=== PATIENT | male | born 1970 | race Caucasian/White ===

== ENCOUNTER → 2019-04-01 | Day surgery (SDC) | payer OTHER ==
[~2019-04-01] MED LIST: Lactated Ringers 1,000 ML IV SCH; Propofol 200 MG/20 ML SDV IV ONE
--- NOTE | 2019-04-01 14:33 | OR ---
DATE OF OPERATION: 04/01/2019 PREOPERATIVE DIAGNOSIS: SCREENING COLONOSCOPY. POSTOPERATIVE DIAGNOSIS: SCREENING COLONOSCOPY. SURGEON: Vikash Alicia MD PROCEDURE: FULL-LENGTH COLONOSCOPY WITH SNARE POLYPECTOMY X1. ANESTHESIA: MAC via MAILING MANAGER. COMPLICATIONS: None. SPECIMEN: Tubular adenoma, splenic flexure, less than 0.5 cm. FINDINGS: 1. Full-length colonoscopy. 2. Mild sigmoid diverticulosis. 3. Small tubular adenoma, splenic flexure. RECOMMENDATIONS: Followup colonoscopy in 5 years. INDICATIONS: The patient was in for a routine physical. Due to his age, we recommended a screen for colon cancer. DESCRIPTION OF PROCEDURE: The patient was prepped and draped, placed in the left lateral decubitus position. A lubricated Olympus colonoscope was inserted and easily advanced to the cecum. Direct visualization of the ileocecal valve and appendiceal orifice was accomplished. The bowel prep was adequate. Upon withdrawal of the scope, the cecum, ascending and transverse colon were benign. On the descending colon side of the splenic flexure, the patient had a flat tubular adenoma easily removed with a snare and suctioned into polyp trap #1. It was approximately 4 to 5 mm in size. The rest of the descending colon was benign. The patient did have mild scattered diverticulosis in the sigmoid colon without inflammatory changes. No other polyps, masses, ulceration, or bleeding sites were seen. No signs of colitis. The rectal vault was benign. Retroflexion of the scope in the rectum showed no perianal lesions. Air was suctioned, scope removed without complication. DALY/EVERETTE /[id number]
== END ==
LOC: CC.SDS 07:19
PROVIDERS: ATTEND Family Medicine
DX: Z12.11 Encounter for screening for malignant neoplasm of colon (principal); D12.3 Benign neoplasm of transverse colon; K57.30 Diverticulosis of large intestine without perforation or abscess without bleeding; I10 Essential (primary) hypertension; E11.9 Type 2 diabetes mellitus without complications; E78.00 Pure hypercholesterolemia, unspecified; F32.9 Major depressive disorder, single episode, unspecified; L40.0 Psoriasis vulgaris; Z88.2 Allergy status to sulfonamides; Z87.891 Personal history of nicotine dependence; Z79.84 Long term (current) use of oral hypoglycemic drugs; Z79.899 Other long term (current) drug therapy
CPT/HCPCS: 45385; J2704; J7120

== ENCOUNTER 2024-05-20 06:51 | Day surgery (SDC) | payer OTHER ==
[2024-05-20] MEDS: Lactated Ringers 1,000 ML IV SCH (07:03)
[2024-05-20] MEDS ORDERED: Midazolam 1 MG/ML 2 ML SDV ONE (07:25)
[2024-05-20] MEDS ORDERED: Propofol 200 MG/20 ML SDV ONE (07:25)
[2024-05-20] MEDS ORDERED: Flumazenil 0.1 MG/ML 5 ML MDV ONE (07:25)
[2024-05-20] MEDS ORDERED: fentaNYL 50 MCG/ML SDV ONE ×2 (07:25)
== END 2024-05-20 08:36 | disposition home or self-care (01) ==
LOC: CC.SDS 06:51
PROVIDERS: ATTEND Family Medicine
DX: Z12.11 Encounter for screening for malignant neoplasm of colon (principal); D12.2 Benign neoplasm of ascending colon; K57.30 Diverticulosis of large intestine without perforation or abscess without bleeding; I10 Essential (primary) hypertension; E78.00 Pure hypercholesterolemia, unspecified; E11.9 Type 2 diabetes mellitus without complications; F32.A Depression, unspecified; Z79.85 Long-term (current) use of injectable non-insulin antidiabetic drugs; Z79.899 Other long term (current) drug therapy; Z86.0100 Personal history of colon polyps, unspecified
CPT/HCPCS: 00811; J2250; J2704; J3010; J3490; J7120